=== PATIENT | male | born 1935 | race Caucasian/White ===

== ENCOUNTER 2018-06-04 08:00 | Outpatient (CLI) | payer MEDICARE ==
[2018-06-04 13:01] LABS: BASOPHILS # (AUTO) 0.1 10^3/uL (0.0-0.1); BASOPHILS % (AUTO) 0.8 %; EOSINOPHILS # (AUTO) 0.2 10^3/uL (0.0-0.7); EOSINOPHILS % (AUTO) 1.5 %; HGB - HEMOGLOBIN 14.7 g/dL (14.0-18.0); LYMPHOCYTES # (AUTO) 1.5 10^3/uL (1.5-3.5); LYMPHOCYTES % (AUTO) 14.8 %; MEAN CORPUSCULAR HEMOGLOBIN 31.1 pg (27.0-31.0); MEAN CORPUSCULAR HGB CONC 33.4 g/dL (32.0-36.0); MEAN CORPUSCULAR VOLUME 93.1 fL (80.0-94.0); MEAN PLATELET VOLUME 8.9 fL (7.4-11.4); MONOCYTES % (AUTO) 9.5 %; NEUTROPHILS # (AUTO) 7.5 10^3/uL (1.5-6.6); NEUTROPHILS % (AUTO) 73.4 %; PLT - PLATELET COUNT 273 10^3/uL (130-450); RED BLOOD COUNT 4.72 10^6/uL (4.70-6.10); RED CELL DISTRIBUTION WIDTH 13.2 % (12.0-15.0); WHITE BLOOD COUNT 10.1 x10^3/uL (4.8-10.8)
[2018-06-04 13:20] LABS: ALBUMIN 4.2 g/dL (3.2-5.5); ALBUMIN/GLOBULIN RATIO 1.2 (1.0-2.2); ALKALINE PHOSPHATASE 59 IU/L (42-121); ALT ALANINE AMINOTRANSFERASE 17 IU/L (10-60); AST ASPARTATE AMINOTRANSFERASE 17 IU/L (10-42); BUN - BLOOD UREA NITROGEN 31 mg/dL (6-20); CALCIUM 9.6 mg/dL (8.5-10.3); CARBON DIOXIDE - CO2 27 mmol/L (21-32); CHLORIDE 101 mmol/L (101-111); CHOL/HDL RATIO 5.7 (<5.0); CHOLESTEROL 200 mg/dL; CREATININE 1.8 mg/dL (0.6-1.2); GFR - MDRD 36 (>89); GLUCOSE 100 mg/dL (70-100); HDL CHOLESTEROL 35 mg/dL; LDL CHOLESTEROL,CALCULATED 146 mg/dL; LDL/HDL RATIO 4.2 (<3.6); SODIUM 139 mmol/L (135-145); TOTAL PROTEIN 7.7 g/dL (6.7-8.2); URIC ACID 10.1 mg/dL (2.6-7.2); VLDL CHOLESTEROL 19 mg/dL
== END 2018-06-04 23:59 | disposition home or self-care (01) ==
LOC: LAB.WCP 08:00
PROVIDERS: ATTEND Physician Assistant Medical
DX: I10 Essential (primary) hypertension (principal); N28.9 Disorder of kidney and ureter, unspecified; M10.00 Idiopathic gout, unspecified site; K21.9 Gastro-esophageal reflux disease without esophagitis
CPT/HCPCS: 36415; 80053; 80061; 83721; 84550; 85025

== ENCOUNTER 2018-09-06 08:00 | Outpatient (CLI) | payer MEDICARE ==
[2018-09-06 12:35] LABS: BASOPHILS # (AUTO) 0.1 10^3/uL (0.0-0.1); BASOPHILS % (AUTO) 1.1 %; EOSINOPHILS # (AUTO) 0.3 10^3/uL (0.0-0.7); EOSINOPHILS % (AUTO) 4.6 %; HGB - HEMOGLOBIN 14.3 g/dL (14.0-18.0); LYMPHOCYTES # (AUTO) 1.6 10^3/uL (1.5-3.5); LYMPHOCYTES % (AUTO) 23.7 %; MEAN CORPUSCULAR HEMOGLOBIN 31.2 pg (27.0-31.0); MEAN CORPUSCULAR HGB CONC 32.3 g/dL (32.0-36.0); MEAN CORPUSCULAR VOLUME 96.5 fL (80.0-94.0); MEAN PLATELET VOLUME 11.1 fL (7.4-11.4); MONOCYTES # (AUTO) 0.6 10^3/uL (0.0-1.0); MONOCYTES % (AUTO) 8.7 %; NEUTROPHILS % (AUTO) 61.4 %; PLT - PLATELET COUNT 240 10^3/uL (130-450); RED BLOOD COUNT 4.59 10^6/uL (4.70-6.10); WHITE BLOOD COUNT 6.5 x10^3/uL (4.8-10.8)
[2018-09-06 12:59] LABS: CALCIUM 9.3 mg/dL (8.5-10.3); CREATININE 1.6 mg/dL (0.6-1.2); URIC ACID 5.8 mg/dL (2.6-7.2)
== END 2018-09-06 23:59 | disposition home or self-care (01) ==
LOC: LAB.WCP 08:00
PROVIDERS: ATTEND Family Medicine
DX: N28.9 Disorder of kidney and ureter, unspecified (principal); M10.00 Idiopathic gout, unspecified site
CPT/HCPCS: 36415; 80048; 84550; 85025

== ENCOUNTER 2019-01-11 13:55 | Outpatient (CLI) | payer MEDICARE ==
[2019-01-11 18:22] LABS: BASOPHILS # (AUTO) 0.1 10^3/uL (0.0-0.1); BASOPHILS % (AUTO) 0.8 %; EOSINOPHILS # (AUTO) 0.3 10^3/uL (0.0-0.7); EOSINOPHILS % (AUTO) 2.2 %; HGB - HEMOGLOBIN 13.6 g/dL (14.0-18.0); LYMPHOCYTES # (AUTO) 1.4 10^3/uL (1.5-3.5); MEAN CORPUSCULAR HEMOGLOBIN 31.3 pg (27.0-31.0); MEAN CORPUSCULAR HGB CONC 31.6 g/dL (32.0-36.0); MEAN CORPUSCULAR VOLUME 98.9 fL (80.0-94.0); MEAN PLATELET VOLUME 10.4 fL (7.4-11.4); MONOCYTES % (AUTO) 9.1 %; NEUTROPHILS # (AUTO) 8.6 10^3/uL (1.5-6.6); NEUTROPHILS % (AUTO) 75.5 %; PLT - PLATELET COUNT 329 10^3/uL (130-450); RED BLOOD COUNT 4.35 10^6/uL (4.70-6.10); RED CELL DISTRIBUTION WIDTH 13.3 % (12.0-15.0); WHITE BLOOD COUNT 11.4 x10^3/uL (4.8-10.8)
[2019-01-11 18:46] LABS: ALBUMIN 4.1 g/dL (3.2-5.5); ALBUMIN/GLOBULIN RATIO 1.2 (1.0-2.2); BILIRUBIN,TOTAL 0.6 mg/dL (0.2-1.0); CALCIUM 9.2 mg/dL (8.5-10.3); CREATININE 1.8 mg/dL (0.6-1.2); CRP - C-REACTIVE PROTEIN 2.3 mg/dL (0-1.0); TOTAL PROTEIN 7.6 g/dL (6.7-8.2)
== END 2019-01-11 23:59 | disposition home or self-care (01) ==
LOC: LAB.WCP 13:55
PROVIDERS: ATTEND Family Medicine
DX: N28.9 Disorder of kidney and ureter, unspecified (principal); R51 Headache; H53.2 Diplopia
CPT/HCPCS: 36415; 80053; 85025; 85651; 86140

== ENCOUNTER 2019-01-15 08:43 | Outpatient (CLI) | payer MEDICARE ==
[2019-01-15] MEDS ORDERED: IOVERSOL 320 100 ML VIAL IVP ONE ×2 (08:48→10:47)
[2019-01-15] MEDS ORDERED: IOVERSOL 320 50 ML VIAL ONE (08:48)
[2019-01-15] MEDS ORDERED: GADOBUTROL 7.5 MMOL/7.5 ML VIAL ONE (09:58)
[2019-01-15] MEDS ORDERED: GADOBUTROL 7.5 MMOL/7.5 ML VIAL IVP ONE (10:06)
[2019-01-15] MEDS ORDERED: IOVERSOL 320 50 ML VIAL PO ONE (10:47)
--- NOTE | 2019-01-15 18:21 | MRI Report ---
Reason: HEADACHE, DIPLOPIA, HTN, RENAL INSUFFICIENCY Procedure Date: 01/15/2019 Accession Number: [id number] / [id number] Procedure: MRI - Brain W/WO CPT Code: Final Report FULL RESULT: EXAM: MRI BRAIN WITHOUT AND WITH CONTRAST EXAM DATE: 01/15/2019 10:15 AM. CLINICAL HISTORY: 84-year-old male. HEADACHE, DIPLOPIA, HTN, RENAL INSUFFICIENCY. COMPARISON: None. TECHNIQUE: Multiplanar, multisequence T1-weighted and fluid-sensitive MR sequences of the brain were performed before and after administration of intravenous contrast. Sequences optimized for routine evaluation. Other: None. IV Contrast: 5 ML Gadavist. FINDINGS: Brain Volume: Mild to moderate diffuse cerebral volume loss with ex-vacuo dilatation of the ventricles and sulci. Parenchyma: No acute hemorrhage, mass, or infarct. Moderate scattered T2/FLAIR hyperintense periventricular, deep, and subcortical white matter lesions within cerebral hemispheres bilaterally. No abnormal enhancement. No parenchymal foci of susceptibility artifact. 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 Ventricles/Cisterns: No hydrocephalus. No abnormal extra-axial fluid collection or hemorrhage. Orbits: Symmetric and unremarkable. Sella Turcica: The pituitary gland, cavernous sinuses, suprasellar cistern and optic chiasm are unremarkable. IAC: Symmetric and unremarkable. Vasculature: Normal signal flow void is seen in the major arterial structures at the skull base. The dural sinuses are patent and enhance normally. Sinuses: No acute sinus disease. Bones: No focal pathologic appearing marrow signal changes. Other: None. IMPRESSION: 1. No MRI evidence of acute intracranial abnormality. Specifically, no evidence of acute or subacute infarct, acute intracranial hemorrhage, mass, midline shift, or hydrocephalus. No abnormal intracranial enhancement. 2. Moderate scattered T2/FLAIR hyperintense periventricular, deep, and subcortical white matter lesions within cerebral hemispheres bilaterally. 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 3. 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 RADIA
--- NOTE | 2019-01-16 11:31 | CT Report ---
Reason: ABD PAIN LLQ Procedure Date: 01/15/2019 Accession Number: [id number] / [id number] Procedure: CT - Abdomen/Pelvis W CPT Code: Final Report FULL RESULT: EXAM: CT ABDOMEN AND PELVIS EXAM DATE: 01/15/2019 10:46 AM. CLINICAL HISTORY: ABD PAIN LLQ. COMPARISONS: None. TECHNIQUE: Routine helical CT imaging was performed through the abdomen and pelvis. IV contrast: 90 cc Optiray 320. Enteric contrast: Positive. Reconstructions: Coronal and sagittal. In accordance with CT protocol optimization, one or more of the following dose reduction techniques were utilized for this exam: automated exposure control, adjustment of mA and/or KV based on patient size, or use of iterative reconstructive technique. FINDINGS: Lung Bases: Lung bases are clear apart from minimal dependent atelectasis. Moderate hiatal hernia. Coronary artery calcifications. Borderline heart size Liver: Unremarkable. No focal liver lesion. Gallbladder/Bile Ducts: Partially contracted gallbladder. No ductal enlargement or calcified gallstone. Spleen: Normal. Pancreas: Normal. Adrenal Glands: Normal. Kidneys: No hydronephrosis. Few probable tiny left renal cysts. No convincing solid mass. Peritoneal Cavity/Bowel: No free air or free fluid. Extensive primarily descending and sigmoid colonic diverticulosis. No definite focal evidence of acute diverticulitis. There is rectus diastasis with linear calcification suggesting prior ventral hernia repair with mesh. Small fat-containing epigastric ventral hernia above the level of the mesh. Appendix not clearly visualized; no pericecal inflammatory changes are evident. Pelvic Organs: There appears to be median lobe hypertrophy of the prostate gland extending into the base of the bladder. 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 Vasculature: Scattered aortoiliac atheromatous calcifications. No aneurysm. Bones: No significant abnormality. Other: None. IMPRESSION: 1. No convincing acute abdominopelvic findings. 2. Extensive diverticulosis without definite focal evidence of acute diverticulitis. 3. Probable median lobe hypertrophy of the prostate gland extending into the bladder lumen, versus bladder mass. 4. Hutch type bladder diverticulum. 5. Other findings as noted above. RADIA
== END 2019-01-15 08:44 | disposition home or self-care (01) ==
LOC: DI 08:43
PROVIDERS: ATTEND Family Medicine
DX: R10.32 Left lower quadrant pain (principal); R51 Headache; H53.2 Diplopia; I10 Essential (primary) hypertension; N28.9 Disorder of kidney and ureter, unspecified; K57.30 Diverticulosis of large intestine without perforation or abscess without bleeding; N32.3 Diverticulum of bladder; K43.9 Ventral hernia without obstruction or gangrene
CPT/HCPCS: 70553; 74177; A9585; Q9967

== ENCOUNTER 2019-01-18 07:00 | Outpatient (CLI) | payer MEDICARE | END 2019-01-18 23:59 | disposition home or self-care (01) | LOC: LAB.WCP 07:00 | PROVIDERS: ATTEND Family Medicine | DX: R51 Headache (principal) | CPT/HCPCS: 36415; 85651; 86140 ==

== ENCOUNTER 2019-02-04 08:00 | Outpatient (CLI) | payer MEDICARE | END 2019-02-04 23:59 | disposition home or self-care (01) | LOC: LAB.WCP 08:00 | PROVIDERS: ATTEND Family Medicine | DX: R51 Headache (principal) | CPT/HCPCS: 36415; 85651; 86140 ==

== ENCOUNTER 2019-02-22 07:21 | Day surgery (SDC) | payer MEDICARE ==
[2019-02-22] MEDS ORDERED: fentaNYL 100 MCG/2 ML VIAL IVP ONE (07:22)
[2019-02-22] MEDS ORDERED: PROPOFOL 200 MG/20 ML VIAL IVP ONE (07:22)
[2019-02-22] MEDS ORDERED: LACTATED RINGERS 1,000 ML IV ONE (07:56)
[2019-02-22] MEDS ORDERED: BACITRACIN ZINC OINT 1 PACKET TOP ONE ×2 (07:58→08:23)
[2019-02-22] MEDS ORDERED: BUPIVACAINE 0.5% PF 30 ML VIAL ONE (07:58)
[2019-02-22] MEDS ORDERED: LIDOCAINE 1%-EPI 1:100000 20 ML MDV ONE (07:58)
[2019-02-22] MEDS ORDERED: CEFAZOLIN SODIUM IN 0.9 % NACL 2 GM/100 ML BAG IV ONE (08:17)
[2019-02-22] MEDS ORDERED: BUPIVACAINE 0.5%-EPI 1:200000 PF 30 ML VIAL SUBQ ONE ×2 (08:22)
[2019-02-22] MEDS ORDERED: LIDOCAINE 1% 50 ML MDV SUBQ ONE ×2 (08:22)
--- NOTE | 2019-02-22 08:23 | ANESTHESIA ---
Pre-Anesthesia VS, & Labs - Diagnosis L temporal headache - Procedure L temporal artery biopsy Vital Signs: Temp Pulse Resp BP Pulse Ox 36.5 C 70 16 159/67 H 96 02/22/19 07:36 02/22/19 07:36 02/22/19 07:36 02/22/19 07:36 02/22/19 07:36 Height 5 ft 8 in Weight (kg) 90.6 kg - NPO >8 hours Home Medications and Allergies Home Medications: Ambulatory Orders Allopurinol [Zyloprim] 300 mg PO DAILY 02/15/19 Amlodipine Besylate 5 mg PO DAILY 02/15/19 Cyanocobalamin (Vitamin B-12) [Vitamin B-12] 5,000 mcg PO DAILY 02/15/19 Omeprazole 20 mg PO DAILY 02/15/19 Allopurinol [Zyloprim] 300 mg PO DAILY 02/15/19 Amlodipine Besylate 5 mg PO DAILY 02/15/19 Cyanocobalamin (Vitamin B-12) [Vitamin B-12] 5,000 mcg PO DAILY 02/15/19 Omeprazole 20 mg PO DAILY 02/15/19 Allergies/Adverse Reactions: Allergies Allergy/AdvReac Type Severity Reaction Status Date / Time No Known Drug Allergies Allergy Verified 02/15/19 16:07 Anes History & Medical History - Anesthetic History Anesthesia Complications: reports: No previous complications Family history of Anesthesia Complications: Denies Family history of Malignant Hyperthermia: Denies - Medical History Cardiovascular: reports: Hypertension Pulmonary: reports: None Gastrointestinal: reports: GERD, Hiatal hernia Urinary: reports: Benign prostate hypertrophy Musculoskeletal: reports: Gout Endocrine/Autoimmune: reports: None Skin: reports: Psoriasis - Surgical History General: Appendectomy, Hiatal hernia repair, Colonoscopy Eyes Ears Nose Throat (EENT): Cataracts, Tonsil/Adenoidectomy Urologic: Prostatic surgery Exam General: Alert, Oriented x3, Cooperative Dental: WNL Mouth Openin Fingerbreadth Neck Mobility: Normal Mallampati classification: II Thyromental Distance: greater than 6 cm Respiratory: Lungs clear, Normal breath sounds, No respiratory distress Cardiovascular: Regular rate Neurological: Normal speech Mental/Cognitive Status: Alert/Oriented X3, Normal for patient Cognitive Status: Within normal limits Plan Anesthesia Type: MAC Consent for Procedure(s) Verified and Reviewed: Yes Code Status: Attempt Resuscitation ASA classification: 2-Mild systemic disease Is this case an emergency?: No
--- NOTE | 2019-02-22 08:59 | OPERATIVE REPORT ---
Operative Report - General Procedure Date: 02/22/19 Planned Procedure: Left temporal artery biopsy Pre-Op Diagnosis: Left temporal headache and diplopia Procedure Performed: Left temporal artery biopsy Post Op Diagnosis: Left temporal headache and diplopia - Procedure Note Primary Surgeon: Marjorie Anesthesia Provider: HANNAH Beaver Anesthesia Technique: Local, MAC Pathology: Portion of temporal artery to pathology in formalin Estimated Blood Loss (mL): 1 Findings: Grossly normal temporal artery Complications: None apparent - Other Other Information/Narrative: After obtaining informed consent, the patient is brought to the operating room placed in the supine position on the operating table. Following successful induction of sedation, appropriate padding of all bony prominences, and placement appropriate monitors, the left temporal region was prepped and draped in the standard surgical fashion. A timeout was held per scope protocol. All elements of the surgical safety checklist were followed before, during, and after the procedure. Following infiltration with local anesthetic to create a field block, a incision was created directly over the temporal artery and carried down through the skin to the subcutaneous tissue. The temporal artery was carefully identified and dissected free from surrounding structures. It was clipped proximally and distally and a 2 cm segment was removed and passed from the table. The wound was checked for hemostasis. The skin incision was closed with Monocryl suture. All sponge, needle, and instrument counts were correct at the conclusion of the case. The patient was allowed awaken from anesthesia without difficulty and taken to the postanesthesia care unit in good condition.
[2019-02-22] MEDS ORDERED: oxyCODONE 5 MG TABLET PO PRN (09:00)
[2019-02-22] MEDS ORDERED: ONDANSETRON 4 MG/2 ML VIAL IVP PRN (09:00)
[2019-02-22 09:40] VITALS: BP 145/79
== END 2019-02-22 07:22 | disposition home or self-care (01) ==
LOC: SDS 07:21
PROVIDERS: ATTEND Surgery
PROC: 03BT0ZX Excision of Left Temporal Artery, Open Approach, Diagnostic (ICD-10-PCS; principal; 2019-02-22 08:30)
DX: M31.6 Other giant cell arteritis (principal); I10 Essential (primary) hypertension; Z79.899 Other long term (current) drug therapy; Z87.891 Personal history of nicotine dependence
CPT/HCPCS: 37609; J0690; J7120

== ENCOUNTER 2019-03-08 08:00 | Outpatient (CLI) | payer MEDICARE | END 2019-03-08 23:59 | disposition home or self-care (01) | LOC: LAB.WCP 08:00 | PROVIDERS: ATTEND Family Medicine | DX: M31.6 Other giant cell arteritis (principal) | CPT/HCPCS: 36415; 85651; 86140 ==

== ENCOUNTER 2019-04-06 09:27 | Outpatient (CLI) | payer MEDICARE | END 2019-04-06 23:59 | disposition home or self-care (01) | LOC: LAB.WCP 09:27 | PROVIDERS: ATTEND Family Medicine | DX: M31.6 Other giant cell arteritis (principal) | CPT/HCPCS: 36415; 85651; 86140 ==

== ENCOUNTER 2019-05-09 12:20 | Outpatient (CLI) | payer MEDICARE | END 2019-05-09 23:59 | disposition home or self-care (01) | LOC: LAB.WCP 12:20 | PROVIDERS: ATTEND Family Medicine | DX: M31.6 Other giant cell arteritis (principal) | CPT/HCPCS: 36415; 85651; 86140 ==

== ENCOUNTER 2019-06-17 08:27 | Outpatient (CLI) | payer MEDICARE | END 2019-06-17 23:59 | disposition home or self-care (01) | LOC: LAB.WCP 08:27 | PROVIDERS: ATTEND Family Medicine | DX: M31.6 Other giant cell arteritis (principal) | CPT/HCPCS: 36415; 85651; 86140 ==

== ENCOUNTER 2019-07-08 09:57 | Outpatient (CLI) | payer MEDICARE ==
[2019-07-08 13:15] LABS: BASOPHILS # (AUTO) 0.1 10^3/uL (0.0-0.1); BASOPHILS % (AUTO) 1.2 %; EOSINOPHILS # (AUTO) 0.2 10^3/uL (0.0-0.7); EOSINOPHILS % (AUTO) 2.4 %; HGB - HEMOGLOBIN 13.4 g/dL (14.0-18.0); LYMPHOCYTES # (AUTO) 1.7 10^3/uL (1.5-3.5); LYMPHOCYTES % (AUTO) 20.4 %; MEAN CORPUSCULAR HEMOGLOBIN 30.8 pg (27.0-31.0); MEAN CORPUSCULAR HGB CONC 31.8 g/dL (32.0-36.0); MEAN PLATELET VOLUME 10.3 fL (7.4-11.4); MONOCYTES # (AUTO) 0.8 10^3/uL (0.0-1.0); NEUTROPHILS # (AUTO) 5.4 10^3/uL (1.5-6.6); NEUTROPHILS % (AUTO) 65.5 %; PLT - PLATELET COUNT 280 10^3/uL (130-450); RED BLOOD COUNT 4.35 10^6/uL (4.70-6.10); RED CELL DISTRIBUTION WIDTH 14.3 % (12.0-15.0); WHITE BLOOD COUNT 8.2 x10^3/uL (4.8-10.8)
[2019-07-08 13:27] LABS: HB2 TOTAL 14.1 g/dL; HEMOGLOBIN A1C 0.46 g/dL; HEMOGLOBIN A1C % 5.1 % (4.6-6.2)
[2019-07-08 13:48] LABS: ALBUMIN 4.1 g/dL (3.2-5.5); ALBUMIN/GLOBULIN RATIO 1.4 (1.0-2.2); ALKALINE PHOSPHATASE 64 IU/L (42-121); ALT ALANINE AMINOTRANSFERASE 22 IU/L (10-60); AST ASPARTATE AMINOTRANSFERASE 18 IU/L (10-42); BILIRUBIN,TOTAL 0.7 mg/dL (0.2-1.0); BUN - BLOOD UREA NITROGEN 31 mg/dL (6-20); CALCIUM 9.3 mg/dL (8.5-10.3); CARBON DIOXIDE - CO2 27 mmol/L (21-32); CHLORIDE 103 mmol/L (101-111); CREATININE 1.8 mg/dL (0.6-1.2); GLUCOSE 87 mg/dL (70-100); SODIUM 137 mmol/L (135-145)
[2019-07-08 15:39] LABS: CRP - C-REACTIVE PROTEIN < 1.0 mg/dL (0-1.0)
== END 2019-07-08 23:59 | disposition home or self-care (01) ==
LOC: LAB.WCP 09:57
PROVIDERS: ATTEND Family Medicine
DX: N28.9 Disorder of kidney and ureter, unspecified (principal); M31.6 Other giant cell arteritis; Z79.899 Other long term (current) drug therapy
CPT/HCPCS: 36415; 80053; 83036; 85025; 85651; 86140

== ENCOUNTER 2019-10-31 08:00 | Outpatient (CLI) | payer MEDICARE | END 2019-10-31 23:59 | disposition home or self-care (01) | LOC: LAB.WCP 08:00 | PROVIDERS: ATTEND Family Medicine | DX: M31.6 Other giant cell arteritis (principal) | CPT/HCPCS: 36415; 85651; 86140 ==

== ENCOUNTER 2019-11-30 09:36 | Outpatient (CLI) | payer MEDICARE | END 2019-11-30 23:59 | disposition home or self-care (01) | LOC: LAB.WCP 09:36 | PROVIDERS: ATTEND Family Medicine | DX: M31.6 Other giant cell arteritis (principal) | CPT/HCPCS: 36415; 85651; 86140 ==

== ENCOUNTER 2019-12-29 08:00 | Outpatient (CLI) | payer MEDICARE | END 2019-12-29 08:01 | disposition home or self-care (01) | LOC: LAB.WCP 08:00 | PROVIDERS: ATTEND Family Medicine | DX: M31.6 Other giant cell arteritis (principal) | CPT/HCPCS: 36415; 85651; 86140 ==

== ENCOUNTER 2020-02-01 08:00 | Outpatient (CLI) | payer MEDICARE | END 2020-02-01 23:59 | disposition home or self-care (01) | LOC: LAB.WCP 08:00 | PROVIDERS: ATTEND Family Medicine | DX: M31.6 Other giant cell arteritis (principal) | CPT/HCPCS: 36415; 85651; 86140 ==

== ENCOUNTER 2020-02-28 09:32 | Outpatient (CLI) | payer MEDICARE | END 2020-02-28 23:59 | disposition home or self-care (01) | LOC: LAB.WCP 09:32 | PROVIDERS: ATTEND Family Medicine | DX: M31.6 Other giant cell arteritis (principal) | CPT/HCPCS: 36415; 85651; 86140 ==

== ENCOUNTER 2020-04-02 08:00 | Outpatient (CLI) | payer MEDICARE ==
[2020-04-02 18:16] LABS: BUN - BLOOD UREA NITROGEN 31 mg/dL (6-20); CALCIUM 9.2 mg/dL (8.5-10.3); CARBON DIOXIDE - CO2 27 mmol/L (21-32); CHLORIDE 102 mmol/L (101-111); CREATININE 1.8 mg/dL (0.6-1.2); GLUCOSE 85 mg/dL (70-100)
[2020-04-02 18:22] LABS: CRP - C-REACTIVE PROTEIN < 1.0 mg/dL (0-1.0)
== END 2020-04-02 23:59 | disposition home or self-care (01) ==
LOC: LAB.WCP 08:00
PROVIDERS: ATTEND Family Medicine
DX: N28.9 Disorder of kidney and ureter, unspecified (principal); M31.6 Other giant cell arteritis
CPT/HCPCS: 36415; 80048; 85651; 86140

== ENCOUNTER 2020-05-10 08:00 | Outpatient (CLI) | payer MEDICARE | END 2020-05-10 23:59 | disposition home or self-care (01) | LOC: LAB.WCP 08:00 | PROVIDERS: ATTEND Family Medicine | DX: M31.6 Other giant cell arteritis (principal) | CPT/HCPCS: 36415; 85651; 86140 ==

== ENCOUNTER 2020-06-15 08:00 | Outpatient (CLI) | payer MEDICARE ==
[2020-06-15 18:19] LABS: BASOPHILS # (AUTO) 0.1 10^3/uL (0.0-0.1); BASOPHILS % (AUTO) 1.1 %; EOSINOPHILS # (AUTO) 0.2 10^3/uL (0.0-0.7); EOSINOPHILS % (AUTO) 2.6 %; HCT - HEMATOCRIT 43.1 % (42.0-52.0); HGB - HEMOGLOBIN 13.5 g/dL (14.0-18.0); LYMPHOCYTES # (AUTO) 1.7 10^3/uL (1.5-3.5); LYMPHOCYTES % (AUTO) 20.4 %; MEAN CORPUSCULAR HEMOGLOBIN 30.1 pg (27.0-31.0); MEAN CORPUSCULAR HGB CONC 31.3 g/dL (32.0-36.0); MEAN CORPUSCULAR VOLUME 96.2 fL (80.0-94.0); MEAN PLATELET VOLUME 10.8 fL (7.4-11.4); MONOCYTES # (AUTO) 0.9 10^3/uL (0.0-1.0); MONOCYTES % (AUTO) 10.8 %; NEUTROPHILS # (AUTO) 5.3 10^3/uL (1.5-6.6); NEUTROPHILS % (AUTO) 64.1 %; PLT - PLATELET COUNT 302 10^3/uL (130-450); RED BLOOD COUNT 4.48 10^6/uL (4.70-6.10); RED CELL DISTRIBUTION WIDTH 13.9 % (12.0-15.0); WHITE BLOOD COUNT 8.3 x10^3/uL (4.8-10.8)
[2020-06-15 18:33] LABS: CALCIUM 9.6 mg/dL (8.5-10.3); CREATININE 1.9 mg/dL (0.6-1.2); POTASSIUM 4.4 mmol/L (3.5-5.0)
== END 2020-06-15 23:59 | disposition home or self-care (01) ==
LOC: LAB.WCP 08:00
PROVIDERS: ATTEND Family Medicine
DX: N18.30 Chronic kidney disease, stage 3 unspecified (principal); M31.6 Other giant cell arteritis
CPT/HCPCS: 36415; 80048; 85025; 85651; 86140

== ENCOUNTER 2020-07-17 08:00 | Outpatient (CLI) | payer MEDICARE | END 2020-07-17 23:59 | disposition home or self-care (01) | LOC: LAB.WCP 08:00 | PROVIDERS: ATTEND Family Medicine | DX: M31.6 Other giant cell arteritis (principal) | CPT/HCPCS: 36415; 85651; 86140 ==

== ENCOUNTER 2020-10-19 08:21 | Outpatient (CLI) | payer MEDICARE ==
[2020-10-19 12:30] LABS: CALCIUM 9.5 mg/dL (8.5-10.3); CREATININE 1.6 mg/dL (0.6-1.2); POTASSIUM 4.4 mmol/L (3.5-5.0)
== END 2020-10-19 23:59 | disposition home or self-care (01) ==
LOC: LAB.WCP 08:21
PROVIDERS: ATTEND Family Medicine
DX: N18.30 Chronic kidney disease, stage 3 unspecified (principal); M31.6 Other giant cell arteritis
CPT/HCPCS: 36415; 80048; 85651; 86140

== ENCOUNTER 2020-12-18 11:34 | Outpatient (CLI) | payer MEDICARE ==
[2020-12-18 18:41] LABS: BUN - BLOOD UREA NITROGEN 33 mg/dL (6-20); CALCIUM 9.3 mg/dL (8.5-10.3); CARBON DIOXIDE - CO2 25 mmol/L (21-32); CHLORIDE 104 mmol/L (101-111); CREATININE 1.8 mg/dL (0.6-1.2); GFR - MDRD 36 (>89); GLUCOSE 97 mg/dL (70-100); POTASSIUM 4.2 mmol/L (3.5-5.0); SODIUM 138 mmol/L (135-145)
[2020-12-18 18:54] LABS: CRP - C-REACTIVE PROTEIN < 1.0 mg/dL (0-1.0)
[2020-12-18 21:32] LABS: HGB - HEMOGLOBIN 13.3 g/dL (14.0-18.0); MEAN CORPUSCULAR HEMOGLOBIN 30.4 pg (27.0-31.0); MEAN CORPUSCULAR HGB CONC 30.9 g/dL (32.0-36.0); MEAN CORPUSCULAR VOLUME 98.2 fL (80.0-94.0); MEAN PLATELET VOLUME 10.3 fL (7.4-11.4); RED BLOOD COUNT 4.38 10^6/uL (4.70-6.10); RED CELL DISTRIBUTION WIDTH 14.1 % (12.0-15.0); WHITE BLOOD COUNT 7.6 x10^3/uL (4.8-10.8)
== END 2020-12-18 23:59 | disposition home or self-care (01) ==
LOC: LAB.WCP 11:34
PROVIDERS: ATTEND Family Medicine
DX: M31.6 Other giant cell arteritis (principal)
CPT/HCPCS: 36415; 80048; 85027; 85651; 86140

== ENCOUNTER 2021-03-15 08:00 | Outpatient (CLI) | payer MEDICARE ==
[2021-03-15 18:25] LABS: URIC ACID 9.4 mg/dL (2.6-7.2)
[2021-03-15 18:34] LABS: CRP - C-REACTIVE PROTEIN < 1.0 mg/dL (0-1.0)
== END 2021-03-15 23:59 | disposition home or self-care (01) ==
LOC: LAB.WCP 08:00
PROVIDERS: ATTEND Family Medicine
DX: M10.9 Gout, unspecified (principal); M31.6 Other giant cell arteritis
CPT/HCPCS: 36415; 84550; 85651; 86140

== ENCOUNTER 2021-05-16 10:10 | Outpatient (CLI) | payer MEDICARE ==
[2021-05-16 12:22] LABS: BASOPHILS # (AUTO) 0.1 10^3/uL (0.0-0.1); BASOPHILS % (AUTO) 1.4 %; EOSINOPHILS # (AUTO) 0.2 10^3/uL (0.0-0.7); EOSINOPHILS % (AUTO) 2.5 %; HCT - HEMATOCRIT 39.8 % (42.0-52.0); HGB - HEMOGLOBIN 12.4 g/dL (14.0-18.0); LYMPHOCYTES # (AUTO) 1.7 10^3/uL (1.5-3.5); LYMPHOCYTES % (AUTO) 20.6 %; MEAN CORPUSCULAR HEMOGLOBIN 29.3 pg (27.0-31.0); MEAN CORPUSCULAR HGB CONC 31.2 g/dL (32.0-36.0); MEAN CORPUSCULAR VOLUME 94.1 fL (80.0-94.0); MEAN PLATELET VOLUME 10.7 fL (7.4-11.4); MONOCYTES # (AUTO) 0.8 10^3/uL (0.0-1.0); NEUTROPHILS # (AUTO) 5.3 10^3/uL (1.5-6.6); NEUTROPHILS % (AUTO) 65.3 %; PLT - PLATELET COUNT 346 10^3/uL (130-450); RED BLOOD COUNT 4.23 10^6/uL (4.70-6.10); RED CELL DISTRIBUTION WIDTH 13.6 % (12.0-15.0); WHITE BLOOD COUNT 8.1 x10^3/uL (4.8-10.8)
[2021-05-16 12:48] LABS: ALBUMIN 4.1 g/dL (3.2-5.5); ALBUMIN/GLOBULIN RATIO 1.3 (1.0-2.2); BILIRUBIN,TOTAL 0.4 mg/dL (0.2-1.0); CALCIUM 9.3 mg/dL (8.5-10.3); CREATININE 1.8 mg/dL (0.6-1.2); POTASSIUM 4.3 mmol/L (3.5-5.0); TOTAL PROTEIN 7.3 g/dL (6.7-8.2)
== END 2021-05-16 10:11 | disposition home or self-care (01) ==
LOC: LAB.N 10:10
PROVIDERS: ATTEND Family Medicine
DX: M31.6 Other giant cell arteritis (principal); I10 Essential (primary) hypertension
CPT/HCPCS: 36415; 80053; 85025; 85651; 86140

== ENCOUNTER 2021-07-09 14:07 | Outpatient (CLI) | payer MEDICARE ==
--- NOTE | 2021-07-09 15:23 | XRAY Report ---
PROCEDURE: Chest 2 View X-Ray INDICATIONS: DYSPNEA AT REST TECHNIQUE: 2 view(s) of the chest. COMPARISON: June 04, 2017 FINDINGS: SUPPORT DEVICES: None. LUNGS/PLEURA: Coarsened interstitial markings with left base atelectasis/scar. No focal consolidation , pleural effusion or space-occupying pneumothorax. MEDIASTINUM: The cardiomediastinal silhouette is within normal limits. BONES/SOFT TISSUES: No acute abnormality. IMPRESSION: 1.No acute cardiopulmonary abnormality. Reviewed by: Fili Almazan MD on 07/09/2021 3:22 PM PDT Approved by: Fili Almazan MD on 07/09/2021 3:22 PM PDT Station ID: [id number]
== END 2021-07-09 14:08 | disposition home or self-care (01) ==
LOC: DI 14:07
PROVIDERS: ATTEND Nurse Practitioner Family
DX: R06.09 Other forms of dyspnea (principal); I10 Essential (primary) hypertension; R42 Dizziness and giddiness
CPT/HCPCS: 36415; 80053; 84443; 85025; 85379

== ENCOUNTER 2021-07-09 14:20 | Outpatient (CLI) | payer MEDICARE ==
[2021-07-09 14:34] LABS: BASOPHILS # (AUTO) 0.1 10^3/uL (0.0-0.1); BASOPHILS % (AUTO) 1.2 %; EOSINOPHILS # (AUTO) 0.2 10^3/uL (0.0-0.7); EOSINOPHILS % (AUTO) 2.5 %; HCT - HEMATOCRIT 37.3 % (42.0-52.0); HGB - HEMOGLOBIN 11.5 g/dL (14.0-18.0); LYMPHOCYTES # (AUTO) 1.9 10^3/uL (1.5-3.5); LYMPHOCYTES % (AUTO) 20.5 %; MEAN CORPUSCULAR HEMOGLOBIN 27.4 pg (27.0-31.0); MEAN CORPUSCULAR HGB CONC 30.8 g/dL (32.0-36.0); MEAN PLATELET VOLUME 10.1 fL (7.4-11.4); MONOCYTES # (AUTO) 0.8 10^3/uL (0.0-1.0); MONOCYTES % (AUTO) 9.1 %; NEUTROPHILS # (AUTO) 6.1 10^3/uL (1.5-6.6); NEUTROPHILS % (AUTO) 66.5 %; PLT - PLATELET COUNT 351 10^3/uL (130-450); RED BLOOD COUNT 4.19 10^6/uL (4.70-6.10); RED CELL DISTRIBUTION WIDTH 14.3 % (12.0-15.0); WHITE BLOOD COUNT 9.2 x10^3/uL (4.8-10.8)
[2021-07-09 14:53] LABS: ALBUMIN 4.1 g/dL (3.2-5.5); ALBUMIN/GLOBULIN RATIO 1.4 (1.0-2.2); BILIRUBIN,TOTAL 0.3 mg/dL (0.2-1.0); CALCIUM 9.2 mg/dL (8.5-10.3); CREATININE 2.1 mg/dL (0.6-1.2); POTASSIUM 4.4 mmol/L (3.5-5.0); TOTAL PROTEIN 7.1 g/dL (6.7-8.2)
[2021-07-09 15:02] LABS: THYROID STIMULATING HORMONE 4.06 uIU/mL (0.34-5.60)
== END 2021-07-09 14:21 | disposition home or self-care (01) ==
LOC: LAB 14:20
PROVIDERS: ATTEND Nurse Practitioner Family
DX: I10 Essential (primary) hypertension (principal); R06.09 Other forms of dyspnea; R42 Dizziness and giddiness
CPT/HCPCS: 36415; 80053; 84443; 85025; 85379

== ENCOUNTER 2021-08-21 14:23 | Outpatient (CLI) | payer MEDICARE ==
[2021-08-21 17:57] LABS: BASOPHILS # (AUTO) 0.1 10^3/uL (0.0-0.1); BASOPHILS % (AUTO) 1.1 %; EOSINOPHILS # (AUTO) 0.1 10^3/uL (0.0-0.7); EOSINOPHILS % (AUTO) 1.6 %; HCT - HEMATOCRIT 37.7 % (42.0-52.0); HGB - HEMOGLOBIN 11.5 g/dL (14.0-18.0); LYMPHOCYTES # (AUTO) 1.4 10^3/uL (1.5-3.5); LYMPHOCYTES % (AUTO) 17.4 %; MEAN CORPUSCULAR HGB CONC 30.5 g/dL (32.0-36.0); MEAN CORPUSCULAR VOLUME 88.5 fL (80.0-94.0); MEAN PLATELET VOLUME 10.7 fL (7.4-11.4); MONOCYTES # (AUTO) 0.7 10^3/uL (0.0-1.0); MONOCYTES % (AUTO) 8.9 %; NEUTROPHILS # (AUTO) 5.7 10^3/uL (1.5-6.6); NEUTROPHILS % (AUTO) 70.8 %; PLT - PLATELET COUNT 343 10^3/uL (130-450); RED BLOOD COUNT 4.26 10^6/uL (4.70-6.10); RED CELL DISTRIBUTION WIDTH 15.3 % (12.0-15.0); WHITE BLOOD COUNT 8.1 x10^3/uL (4.8-10.8)
[2021-08-21 18:04] LABS: ALBUMIN 3.9 g/dL (3.2-5.5); ALBUMIN/GLOBULIN RATIO 1.2 (1.0-2.2); BILIRUBIN,TOTAL 0.4 mg/dL (0.2-1.0); CALCIUM 9.1 mg/dL (8.5-10.3); CREATININE 1.9 mg/dL (0.6-1.2); POTASSIUM 4.6 mmol/L (3.5-5.0); TOTAL PROTEIN 7.1 g/dL (6.7-8.2)
== END 2021-08-21 14:24 | disposition home or self-care (01) ==
LOC: LAB.N 14:23
PROVIDERS: ATTEND Nurse Practitioner Family
DX: N18.30 Chronic kidney disease, stage 3 unspecified (principal); D64.9 Anemia, unspecified
CPT/HCPCS: 36415; 80053; 85025

== ENCOUNTER 2021-08-23 09:00 | Outpatient (CLI) | payer MEDICARE | END 2021-08-23 09:01 | disposition home or self-care (01) | LOC: MAC.MOP 09:00 | PROVIDERS: ATTEND Nurse Practitioner Family | DX: I47.1 Supraventricular tachycardia (principal); I47.2 Ventricular tachycardia; I49.1 Atrial premature depolarization; I49.3 Ventricular premature depolarization | CPT/HCPCS: 93244 ==

== ENCOUNTER 2022-03-19 13:26 | Outpatient (CLI) | payer MEDICARE ==
[2022-03-19 18:21] LABS: BASOPHILS # (AUTO) 0.1 10^3/uL (0.0-0.1); BASOPHILS % (AUTO) 1.2 %; EOSINOPHILS # (AUTO) 0.2 10^3/uL (0.0-0.7); HCT - HEMATOCRIT 37.6 % (42.0-52.0); HGB - HEMOGLOBIN 11.2 g/dL (14.0-18.0); LYMPHOCYTES # (AUTO) 1.8 10^3/uL (1.5-3.5); LYMPHOCYTES % (AUTO) 17.8 %; MEAN CORPUSCULAR HEMOGLOBIN 26.5 pg (27.0-31.0); MEAN CORPUSCULAR HGB CONC 29.8 g/dL (32.0-36.0); MEAN CORPUSCULAR VOLUME 88.9 fL (80.0-94.0); MEAN PLATELET VOLUME 10.2 fL (7.4-11.4); MONOCYTES % (AUTO) 10.2 %; NEUTROPHILS # (AUTO) 6.9 10^3/uL (1.5-6.6); NEUTROPHILS % (AUTO) 68.5 %; PLT - PLATELET COUNT 415 10^3/uL (130-450); RED BLOOD COUNT 4.23 10^6/uL (4.70-6.10); RED CELL DISTRIBUTION WIDTH 15.1 % (12.0-15.0); WHITE BLOOD COUNT 10.1 x10^3/uL (4.8-10.8)
[2022-03-19 18:25] LABS: ALBUMIN 3.8 g/dL (3.2-5.5); BILIRUBIN,TOTAL 0.6 mg/dL (0.2-1.0); CALCIUM 8.9 mg/dL (8.5-10.3); CREATININE 1.8 mg/dL (0.6-1.2); POTASSIUM 4.2 mmol/L (3.5-5.0); TOTAL PROTEIN 7.5 g/dL (6.7-8.2)
== END 2022-03-19 13:27 | disposition home or self-care (01) ==
LOC: LAB.N 13:26
PROVIDERS: ATTEND Nurse Practitioner Family
DX: I12.9 Hypertensive chronic kidney disease with stage 1 through stage 4 chronic kidney disease, or unspecified chronic kidney disease (principal); N18.30 Chronic kidney disease, stage 3 unspecified; D63.1 Anemia in chronic kidney disease
CPT/HCPCS: 36415; 80053; 85025

== ENCOUNTER 2022-04-02 10:20 | Outpatient (CLI) | payer MEDICARE ==
[2022-04-02 18:07] LABS: BILIRUBIN,URINE NEGATIVE (NEGATIVE); GLUCOSE, URINE (UA) NEGATIVE (NEGATIVE); KETONES,URINE (UA) NEGATIVE (NEGATIVE); LEUKOCYTE ESTERASE, URINE NEGATIVE (NEGATIVE); NITRITE,URINE NEGATIVE (NEGATIVE); OCCULT BLOOD,URINE NEGATIVE (NEGATIVE); PROTEIN,URINE 30 mg/dL (NEGATIVE); UROBILINOGEN,URINE 0.2 (NORMAL) E.U./dL (NORMAL)
[2022-04-02 18:15] LABS: BACTERIA,URINE Rare /HPF (None Seen); CLARITY,URINE CLEAR (CLEAR); RBC,URINE 0-5 /HPF (0-5); SQUAMOUS EPITHELIAL CELL,UR NONE SEEN (<= Few); WBC,URINE 0-3 /HPF (0-3)
== END 2022-04-02 23:59 | disposition home or self-care (01) ==
LOC: LAB.WCP 10:20
PROVIDERS: ATTEND Nurse Practitioner Family
DX: R10.32 Left lower quadrant pain (principal)
CPT/HCPCS: 81001; 87086

== ENCOUNTER 2022-04-15 10:44 | Outpatient (CLI) | payer MEDICARE ==
--- NOTE | 2022-04-15 15:14 | CT Report ---
PROCEDURE: ABDOMEN/PELVIS WO INDICATIONS: LEFT FLANK PAIN, LLQ ABD PAIN TECHNIQUE: Noncontrast 5 mm thick sections acquired from the diaphragms to the symphysis. 5 mm coronal and sagi ttal reformats were then performed. For radiation dose reduction, the following was used: automated exposure control, adjustment of mA and/or kV according to patient size. COMPARISON: 01/15/2019 CT abdomen and pelvis with contrast. FINDINGS: Image quality: Excellent. ABDOMEN: Lung bases: Lung bases are clear. Heart size is normal. At least moderate coronary artery calcifica tions. Mild to moderate hiatal hernia. Solid organs: Liver and spleen are normal in size. Gallbladder is unremarkable. Pancreas is normal in contours. No adrenal nodules. Kidneys are normal in size, without hydronephrosis. 3 mm nonobstr ucting right lower pole renal stone. Question 3 mm left renal stone versus vascular calcifications. Peritoneum and bowel: Again noted is extensive sigmoid diverticulosis. There is acute noncomplicated diverticulitis involving the proximal and mid sigmoid. There is inflammatory change in the surroundin g fat and minimal subjacent fluid. No free air or abscess cavity. Nodes and vessels: No retroperitoneal or mesenteric adenopathy by size criteria. Aorta and inferior vena cava are normal in caliber. Miscellaneous: No ventral hernias. PELVIS: Genitourinary: The prostate is somewhat enlarged with a prominent median lobe indenting on the base t he bladder. There is very mild bladder wall thickening. There is a diverticulum off the right base of bladder. Miscellaneous: No inguinal hernias or adenopathy. Bones: No suspicious bony lesions. No vertebral body compression fractures. IMPRESSION: Acute noncomplicated sigmoid diverticulitis. Reviewed by: Amado Baldwin MD on 04/15/2022 3:12 PM PST Approved by: Amado Baldwin MD on 04/15/2022 3:12 PM PST Station ID: [id number]
== END 2022-04-15 10:45 | disposition home or self-care (01) ==
LOC: DI 10:44
PROVIDERS: ATTEND Nurse Practitioner Family
DX: K57.32 Diverticulitis of large intestine without perforation or abscess without bleeding (principal)

== ENCOUNTER 2022-07-14 08:00 | Outpatient (CLI) | payer MEDICARE ==
[2022-07-14 20:48] LABS: ALBUMIN 4.1 g/dL (3.2-5.5); ALBUMIN/GLOBULIN RATIO 1.1 (1.0-2.2); BILIRUBIN,TOTAL 0.7 mg/dL (0.2-1.0); CALCIUM 9.2 mg/dL (8.5-10.3); POTASSIUM 4.7 mmol/L (3.5-5.0); TOTAL PROTEIN 7.9 g/dL (6.7-8.2)
[2022-07-14 20:59] LABS: BASOPHILS # (AUTO) 0.1 10^3/uL (0.0-0.1); BASOPHILS % (AUTO) 1.6 %; EOSINOPHILS # (AUTO) 0.2 10^3/uL (0.0-0.7); EOSINOPHILS % (AUTO) 2.3 %; HCT - HEMATOCRIT 33.8 % (42.0-52.0); HGB - HEMOGLOBIN 10.2 g/dL (14.0-18.0); LYMPHOCYTES # (AUTO) 1.4 10^3/uL (1.5-3.5); LYMPHOCYTES % (AUTO) 20.3 %; MEAN CORPUSCULAR HEMOGLOBIN 25.7 pg (27.0-31.0); MEAN CORPUSCULAR HGB CONC 30.2 g/dL (32.0-36.0); MEAN CORPUSCULAR VOLUME 85.1 fL (80.0-94.0); MEAN PLATELET VOLUME 10.3 fL (7.4-11.4); MONOCYTES # (AUTO) 0.7 10^3/uL (0.0-1.0); MONOCYTES % (AUTO) 9.5 %; NEUTROPHILS # (AUTO) 4.7 10^3/uL (1.5-6.6); NEUTROPHILS % (AUTO) 66.2 %; PLT - PLATELET COUNT 433 10^3/uL (130-450); RED BLOOD COUNT 3.97 10^6/uL (4.70-6.10); RED CELL DISTRIBUTION WIDTH 16.4 % (12.0-15.0)
[2022-07-14 21:04] LABS: THYROID STIMULATING HORMONE 5.25 uIU/mL (0.34-5.60)
== END 2022-07-14 23:59 | disposition home or self-care (01) ==
LOC: LAB.N 08:00
PROVIDERS: ATTEND Family Medicine
DX: R06.09 Other forms of dyspnea (principal)
CPT/HCPCS: 36415; 80053; 83880; 84443; 85025; 85379

== ENCOUNTER 2022-07-15 08:10 | Emergency (ER) | payer MEDICARE ==
[2022-07-15] MEDS ORDERED: iohexoL-300 100 ML VIAL ONE (09:29)
--- NOTE | 2022-07-15 10:40 | CT Report ---
PROCEDURE: ANGIO CHEST W/WO INDICATIONS: SOA; abnormal ddimer; outpatient labs 07/14 CONTRAST: 80ml OMnipaque 300 TECHNIQUE: After the administration of intravenous contrast, 2 mm axial images were acquired from the pulmonary apices to the posterior costophrenic angles during the arterial phase. In addition, 1 mm lung kernel and 5 mm soft tissue kernel reconstructions were performed. 3-dimensional coronal oblique maximum int ensity projection (MIP) reformats, 8 mm axial MIP, and 5 mm coronal and sagittal MPR reformats were t hen performed through the thorax. For radiation dose reduction, the following was used: automated exp osure control, adjustment of mA and/or kV according to patient size. COMPARISON: None FINDINGS: Image quality: Good Lungs and pleura:Small bilateral pleural effusions. Emphysema. Mild diffuse septal thickening. No den se airspace disease. Scattered atelectasis/scarring. Micronodules can be optionally followed in [address] for high risk patients vs. enrollment in lung cancer screening. Mediastinum, heart, and esophagus: No pulmonary embolism. Coronary artery disease. Annular calcificat ions of the heart. No pathologic adenopathy by size criteria. Mild to moderate hiatal hernia. Chest wall and thyroid: Unremarkable Upper abdomen: No gross abnormality on these limited arterial phase images. Bones: Degenerative changes. No acute or suspicious osseous finding. IMPRESSION: No acute pulmonary embolism. Small bilateral pleural effusions and pulmonary findings suggestive for mild edema, less likely atypi blaine infection. Consider future imaging surveillance to assess for resolution. Other findings above, favored nonacute/incidental. Reviewed by: Emiliano Newman MD on 07/15/2022 10:38 AM PDT Approved by: Emiliano Newman MD on 07/15/2022 10:38 AM PDT Station ID: [id number]
--- NOTE | 2022-07-15 11:16 | ED Physician Documentation ---
PD HPI DYSPNEA - Stated complaint Stated Complaint: ABNORMAL LAB WORK - Chief complaint Chief Complaint: Resp - History obtained from History obtained from: Patient - Additional information Additional information: Patient is an 87-year-old male presenting for evaluation of 1 to 2-week history of feeling short of breath particularly with exertion. He denies having any episodes of chest pain. He went to the walk-in clinic yesterday and had labs and EKG done. He was called this morning due to abnormal labs and told to come to the emergency department for further evaluation.He has noted that His s ymptoms can feel worse when he is laying flat versus sitting upright. He denies any fever, cough, congestion, abdominal pain, vomiting, leg swelling or pain. Review of Systems Constitutional: denies: Fever Cardiac: denies: Chest pain / pressure Respiratory: reports: Dyspnea GI: denies: Abdominal Pain : denies: Dysuria Musculoskeletal: denies: Extremity pain, Extremity swelling PD PAST MEDICAL HISTORY - Past Medical History Cardiovascular: Hypertension Respiratory: None Endocrine/Autoimmune: None GI: GERD, Hiatal hernia : Benign prostate hypertrophy HEENT: None Psych: None Musculoskeletal: Gout Derm: Psoriasis - Past Surgical History General: Appendectomy, Hiatal hernia repair, Colonoscopy HEENT: Cataracts, Tonsil/Adenoidectomy - Present Medications Home Medications: Ambulatory Orders Medication Instructions Recorded Confirmed Amlodipine Besylate 5 mg PO DAILY 02/15/19 02/22/19 Cyanocobalamin (Vitamin B-12) 5,000 mcg PO DAILY 02/15/19 02/22/19 [Vitamin B-12] Omeprazole 20 mg PO DAILY 02/15/19 02/22/19 allopurinoL [Zyloprim] 300 mg PO DAILY 02/15/19 02/22/19 Ondansetron Odt [Zofran] 4 mg TL Q6H PRN #10 tablet 02/22/19 oxyCODONE [Roxicodone] 5 mg PO ONCE PRN #5 tablet 02/22/19 Furosemide [Lasix] 20 mg PO DAILY 3 Days #3 tablet 07/15/22 - Allergies Allergies/Adverse Reactions: Allergies Allergy/AdvReac Type Severity Reaction Status Date / Time No Known Drug Allergies Allergy Verified 07/15/22 08:47 PD ED PE NORMAL - General General: Alert and oriented X 3, No acute distress, Well developed/nourished - HEENT HEENT: Atraumatic - Neck Neck: Supple, no meningeal sign - Cardiac Cardiac: RRR, No murmur - Respiratory Respiratory: No respiratory distress, Other (Faint crackles bilaterally) - Abdomen Abdomen: Soft, Non tender, Non distended - Derm Derm: Warm and dry - Extremities Extremities: No edema - Neuro Neuro: Normal speech Results - Vitals Vitals: Vital Signs - 24 hr 07/15/22 07/15/22 07/15/22 08:47 10:30 11:00 Temperature 36.6 C Heart Rate 84 88 75 Respiratory 18 17 13 Rate Blood Pressure 165/69 H 161/76 H 145/64 H O2 Saturation 99 100 99 07/15/22 07/15/22 11:30 11:45 Temperature Heart Rate 81 77 Respiratory 14 14 Rate Blood Pressure 157/65 H O2 Saturation 100 99 Oxygen O2 Source Room air - EKG (time done) 1124 EKG releavant findings:: EKG personally interpreted by author of this note. Relevant findings are: Rate 81, normal sinus rhythm, no STEMI Rate: Rate (enter#) (81) Rhythm: NSR Ischemia: No: ST elevation c/w ischemia Compare to prior EKG: Old EKG unavailable PD Medical Decision Making - ED course Complexity details: reviewed results, d/w patient ED course: Patient is an 87-year-old male with a 1 to 2-week history of feeling short of air. Had outpatient labs done through the walk-in clinic yesterday and with an elevated D-dimer as well as BNP. He has chronic kidney disease and his creatinine is 2.0 with a GFR of 32. Due to concern for possible pulmonary embolism causing his shortness of air and elevated D-dimer I felt that it was prudent to order a CT with contrast as we do not have capabilities to do a nuclear med scan.CT angio was obtained to evaluate for PE and is negative for PE. There are small bilateral pleural effusions.His BNP yesterday is 1200. He does not have a known history of congestive heart failure. He denies chest pain which I feel makes ACS less likely.His symptoms could be related to fluid overload so I will give him a small course of a diuretic with the understanding that he needs close follow-up with his PCP. He is advised on concerning sym ptoms to return for. Departure - Departure Disposition: Home, Self Care Clinical Impression: Dyspnea Condition: Stable Instructions: ED Dyspnea Shortness of Breath Prescriptions: Furosemide [Lasix] 20 mg PO DAILY 3 Days #3 tablet Comments: Your CT scan did not show any signs of any blood clots. There is some fluid in your lungs which may be causing your shortness of breath. I would recommend close follow-up with your primary care provider as you may need a referral to a general merchandise manager to evaluate your heart further. In the meanwhile I will trial you on a few days of a water pill To see if this helps with your breathing. If you develop any worsening symptoms such as chest pain or any new concerns please return to the emergency department. I have sent your prescription to [facility] in [place]. CT RESULTS Lungs and pleura:Small bilateral pleural effusions. Emphysema. Mild diffuse septal thickening. No dense airspace disease. Scattered atelectasis/scarring. Micronodules can be optionally followed in [address] for high risk patients vs. enrollment in lung cancer screening. Mediastinum, heart, and esophagus: No pulmonary embolism. Coronary artery disease. Annular calcifications of the heart. No pathologic adenopathy by size criteria. Mild to moderate hiatal hernia. Chest wall and thyroid: Unremarkable Upper abdomen: No gross abnormality on these limited arterial phase images. Bones: Degenerative changes. No acute or suspicious osseous finding. IMPRESSION: No acute pulmonary embolism. Small bilateral pleural effusions and pulmonary findings suggestive for mild edema, less likely atypical infection. Consider future imaging surveillance to assess for resolution. Other findings above, favored nonacute/incidental. Discharge Date/Time: 07/15/22 11:46
[2022-07-15 11:45] VITALS: BP 157/65
[2022-07-15] MEDS: iohexoL-300 100 ML VIAL IVP ONE (15:30)
== END 2022-07-15 11:46 | disposition home or self-care (01) ==
LOC: ED 08:10
DX: R06.09 Other forms of dyspnea (principal); I10 Essential (primary) hypertension
CPT/HCPCS: 71275; 93005; 99284; Q9967

== ENCOUNTER 2022-09-08 14:48 | Outpatient (CLI) | payer MEDICARE ==
[2022-09-08 19:17] LABS: BASOPHILS # (AUTO) 0.1 10^3/uL (0.0-0.1); BASOPHILS % (AUTO) 1.4 %; EOSINOPHILS # (AUTO) 0.1 10^3/uL (0.0-0.7); EOSINOPHILS % (AUTO) 1.1 %; HCT - HEMATOCRIT 35.9 % (42.0-52.0); HGB - HEMOGLOBIN 10.6 g/dL (14.0-18.0); LYMPHOCYTES # (AUTO) 1.3 10^3/uL (1.5-3.5); LYMPHOCYTES % (AUTO) 12.7 %; MEAN CORPUSCULAR HEMOGLOBIN 24.5 pg (27.0-31.0); MEAN CORPUSCULAR HGB CONC 29.5 g/dL (32.0-36.0); MEAN CORPUSCULAR VOLUME 83.1 fL (80.0-94.0); MEAN PLATELET VOLUME 10.2 fL (7.4-11.4); MONOCYTES # (AUTO) 0.9 10^3/uL (0.0-1.0); MONOCYTES % (AUTO) 9.2 %; NEUTROPHILS # (AUTO) 7.4 10^3/uL (1.5-6.6); NEUTROPHILS % (AUTO) 75.2 %; PLT - PLATELET COUNT 400 10^3/uL (130-450); RED BLOOD COUNT 4.32 10^6/uL (4.70-6.10); RED CELL DISTRIBUTION WIDTH 15.8 % (12.0-15.0); WHITE BLOOD COUNT 9.9 x10^3/uL (4.8-10.8)
[2022-09-08 19:34] LABS: ALBUMIN 4.1 g/dL (3.2-5.5); ALBUMIN/GLOBULIN RATIO 1.1 (1.0-2.2); BILIRUBIN,TOTAL 0.6 mg/dL (0.2-1.0); CALCIUM 9.4 mg/dL (8.5-10.3); CREATININE 2.3 mg/dL (0.6-1.2); POTASSIUM 4.8 mmol/L (3.5-5.0); TOTAL PROTEIN 7.7 g/dL (6.7-8.2); URIC ACID 8.6 mg/dL (2.6-7.2)
== END 2022-09-08 14:49 | disposition home or self-care (01) ==
LOC: LAB.N 14:48
PROVIDERS: ATTEND Nurse Practitioner Family
DX: I10 Essential (primary) hypertension (principal); E79.0 Hyperuricemia without signs of inflammatory arthritis and tophaceous disease; R89.8 Other abnormal findings in specimens from other organs, systems and tissues; R79.1 Abnormal coagulation profile; R06.09 Other forms of dyspnea; R05.9 Cough, unspecified
CPT/HCPCS: 36415; 80053; 83880; 84550; 85025; 85379

== ENCOUNTER 2022-09-20 08:48 | Outpatient (CLI) | payer MEDICARE ==
--- NOTE | 2022-09-20 11:02 | Ultrasound Report ---
PROCEDURE: Duplex Ext Veins Bilateral INDICATIONS: ARMANDO Mckeon TECHNIQUE: Real-time imaging, as well as color and pulse Doppler interrogation, were performed of the deep veins of both legs from the inguinal ligament to the popliteal fossa. COMPARISON: None FINDINGS: The deep veins are normally compressible, and free of intraluminal thrombus. Color and pu lse Doppler demonstrate normal phasic intravascular flow. There is normal augmentation response to d istal compression maneuver. IMPRESSION: Negative for deep venous thrombosis of the bilateral lower extremities. Reviewed by: Julian Bowers MD on 09/20/2022 10:01 AM HITESH Approved by: Julian Bowers MD on 09/20/2022 10:01 AM HITESH Station ID: [id number]
--- NOTE | 2022-09-20 11:27 | Ultrasound Report ---
PROCEDURE: Retroperitoneal INDICATIONS: HYPERTENSION, CKD, ELEVATED D DIMER TECHNIQUE: Real-time scanning was performed of the retroperitoneal organs, with image documentation. COMPARISON: CT dated 04/15/2022 FINDINGS: Kidneys: Kidneys are normal in size. Right kidney measures 8.6 cm long; left kidney measures 10.6 c m long. Right renal cortical thickness is 2.1 cm; left renal cortical thickness is 1.4 cm. No solid masses, hydronephrosis, or nephrolithiasis. Bladder: Pre-void bladder volume is 326 mL. Post-void residual is 289.9 mL. Pre-void images demons trate no intraluminal masses or stones. On pre-void images, bilateral ureteral jets are noted with c olor Doppler interrogation. (Of note, ureteral jets may not be detectable in up to 25% of cases due to insufficient differences in specific gravity between ureteral and bladder urine). There is a urin anayeli bladder diverticulum measuring 4.5 x 2.7 x 2.8 cm in size. There is also mass effect upon the inf erior wall of the urinary bladder secondary to adjacent enlarged prostate gland. Miscellaneous: No free abdominal fluid. IMPRESSION: No sonographic evidence for obstructive uropathy or urolithiasis. Large post void residual urinary bladder volume of approximately 290 mL. Mild prostatomegaly with associated mass effect upon the inferior wall of the urinary bladder. Incidental note of a urinary bladder wall diverticulum. Reviewed by: Julian Bowers MD on 09/20/2022 10:26 AM HITESH Approved by: Julian Bowers MD on 09/20/2022 10:26 AM AKAKASH Station ID: [id number]
== END 2022-09-20 08:49 | disposition home or self-care (01) ==
LOC: DI 08:48
PROVIDERS: ATTEND Nurse Practitioner Family
DX: I12.9 Hypertensive chronic kidney disease with stage 1 through stage 4 chronic kidney disease, or unspecified chronic kidney disease (principal); N18.4 Chronic kidney disease, stage 4 (severe); R79.1 Abnormal coagulation profile; N40.0 Benign prostatic hyperplasia without lower urinary tract symptoms
CPT/HCPCS: 93970

== ENCOUNTER 2022-10-02 08:00 | Outpatient (CLI) | payer MEDICARE ==
[2022-10-02 16:14] LABS: BILIRUBIN,URINE NEGATIVE (NEGATIVE); GLUCOSE, URINE (UA) NEGATIVE (NEGATIVE); KETONES,URINE (UA) NEGATIVE (NEGATIVE); LEUKOCYTE ESTERASE, URINE NEGATIVE (NEGATIVE); NITRITE,URINE NEGATIVE (NEGATIVE); OCCULT BLOOD,URINE NEGATIVE (NEGATIVE); PH,URINE 5.5 PH (5.0-7.5); PROTEIN,URINE 100 mg/dL (NEGATIVE); UROBILINOGEN,URINE 0.2 (NORMAL) E.U./dL (NORMAL)
[2022-10-02 16:23] LABS: CLARITY,URINE CLEAR (CLEAR)
[2022-10-02 16:32] LABS: BACTERIA,URINE None Seen /HPF (None Seen); RBC,URINE None Seen /HPF (0-5); SQUAMOUS EPITHELIAL CELL,UR NONE SEEN (<= Few); WBC,URINE 0-3 /HPF (0-3)
== END 2022-10-02 23:59 | disposition home or self-care (01) ==
LOC: LAB 08:00
PROVIDERS: ATTEND Urology
DX: N40.1 Benign prostatic hyperplasia with lower urinary tract symptoms (principal); N13.8 Other obstructive and reflux uropathy
CPT/HCPCS: 81001; 87086

== ENCOUNTER 2022-10-30 11:59 | Outpatient (CLI) | payer MEDICARE ==
[2022-10-30 17:58] LABS: CALCIUM 9.5 mg/dL (8.5-10.3); POTASSIUM 4.3 mmol/L (3.5-4.5)
== END 2022-10-30 12:00 | disposition home or self-care (01) ==
LOC: LAB.N 11:59
PROVIDERS: ATTEND Urology
DX: N18.4 Chronic kidney disease, stage 4 (severe) (principal)
CPT/HCPCS: 36415; 80048